=== PATIENT | female | born 1960 | race Caucasian/White ===

== ENCOUNTER 2023-11-08 07:46 | Day surgery (SDC) | payer OTHER ==
[~2023-11-08] VITALS: Ht 175.3 cm; Wt 98.9 kg
[2023-11-08 08:45] VITALS: O2SAT 97
[2023-11-08] MEDS ORDERED: MIDAZOLAM HCL 5 MG/5 ML VIAL ONE (08:46)
[2023-11-08] MEDS ORDERED: MEPERIDINE 100 MG INJ. 100 MG/ML VIAL ONE (08:50)
[2023-11-08 13:34] VITALS: BP_SYST 155; PULSE 71; RESP 14
== END 2023-11-08 11:15 | disposition home or self-care (01) ==
LOC: SDS 07:46 → SMU 07:47 → SDS 11:15
PROVIDERS: ATTEND Internal Medicine Gastroenterology
DX: Z12.11 Encounter for screening for malignant neoplasm of colon (principal); D12.3 Benign neoplasm of transverse colon; D12.4 Benign neoplasm of descending colon; K62.1 Rectal polyp; K57.30 Diverticulosis of large intestine without perforation or abscess without bleeding; K64.8 Other hemorrhoids; I10 Essential (primary) hypertension; E11.9 Type 2 diabetes mellitus without complications; G47.30 Sleep apnea, unspecified; M19.90 Unspecified osteoarthritis, unspecified site; Z90.710 Acquired absence of both cervix and uterus; Z95.1 Presence of aortocoronary bypass graft; Z79.84 Long term (current) use of oral hypoglycemic drugs; Z79.899 Other long term (current) drug therapy; Z95.818 Presence of other cardiac implants and grafts; Z88.7 Allergy status to serum and vaccine; Z85.42 Personal history of malignant neoplasm of other parts of uterus
CPT/HCPCS: 45385; 99152; 82948; 88305; 99153; G0378; J2250; J2175